=== PATIENT | female | born 1950 | race Caucasian/White ===

== ENCOUNTER → 2017-04-03 | Outpatient (CLI) | payer MEDICARE, OTHER ==
--- NOTE | 2017-04-03 16:42 | REP ---
MAXILLOFACIAL CT WITHOUT CONTRAST: HISTORY: Decreased smell sensation. COMPARISON: 03/11/2014 Bilateral Earle cells are present. Mild mucosal thickening is present in the right maxillary sinus. The remaining sinuses are clear. Mucosal thickening involves the right osteomeatal unit. The left osteomeatal unit is patent. The middle and inferior nasal turbinates are partially paradoxical. There is minimal deviation of the nasal septum to the right. The cribriform plate, medial bauer of the orbits and optic canals are intact. The carotid canals form a segment of the posterolateral bauer of the sphenoid sinus. IMPRESSION: Sinus mucosal thickening as described above. Signed by Marko Rich MD 04/03/2017 04:48 P
== END ==
LOC: M RAD 16:00
PROVIDERS: ATTEND Otolaryngology
DX: R43.8 Other disturbances of smell and taste (principal)

== ENCOUNTER → 2018-04-30 | Outpatient (REF) | payer MEDICARE, OTHER ==
[2018-04-30 13:50] LABS: BASO % 0.4 % (0.0-1.0); EOS # 0.1 10^3/uL (0.0-0.50); EOS % 0.9 % (0.0-3.0); HEMOGLOBIN 13.3 g/dl (12.0-15.5); IMMATURE GRANULOCYTE % 0.3 % (0-3.0); LYMPH # 3.2 10^3/uL (1.5-4.5); LYMPH % 46.7 % (24.0-44.0); MEAN CORPUSCULAR HEMOGLOBIN 27.4 pg (27.0-33.0); MEAN CORPUSCULAR HGB CONC 33.3 g/dl (32.0-36.5); MEAN CORPUSCULAR VOLUME 82.3 fl (80.0-96.0); MONO # 0.6 10^3/uL (0.0-0.8); MONO % 8.1 % (0.0-5.0); NEUTROPHILS % 43.6 % (36.0-66.0); PLATELET COUNT, AUTOMATED 344 10^3/uL (150-450); RED BLOOD COUNT 4.86 10^6/uL (4.00-5.40); RED CELL DISTRIBUTION WIDTH 13.4 % (11.5-14.5); WHITE BLOOD COUNT 6.9 10^3/uL (4.0-10.0)
[2018-04-30 14:19] LABS: ALBUMIN/GLOBULIN RATIO 1.21 (1.00-1.93); ALKALINE PHOSPHATASE 79 U/L (45-117); ALT/SGPT 25 U/L (12-78); ANION GAP 7 MEQ/L (8-16); AST/SGOT 18 U/L (7-37); BILIRUBIN,TOTAL 0.3 MG/DL (0.2-1.0); BLOOD UREA NITROGEN 15 MG/DL (7-18); CALCIUM LEVEL 9.5 MG/DL (8.8-10.2); CARBON DIOXIDE LEVEL 27 MEQ/L (21-32); CHLORIDE LEVEL 98 MEQ/L (98-107); CREATININE FOR GFR 0.67 MG/DL (0.55-1.30); GLOMERULAR FILTRATION RATE > 60.0 (>45); GLUCOSE, FASTING 95 MG/DL (70-100); POTASSIUM SERUM 4.5 MEQ/L (3.5-5.1); SODIUM LEVEL 132 MEQ/L (136-145); TOTAL PROTEIN 7.3 GM/DL (6.4-8.2)
[2018-04-30 18:26] LABS: ESTIMATED AVERAGE GLUCOSE 146 MG/DL (60-110); HEMOGLOBIN A1c 6.7 %
[2018-05-05 09:57] LABS: ALBUMIN 4.05 GM/DL (3.29-5.55); ALBUMIN % 55.5 % (55.8-66.1); ALPHA-1-GLOBULINS 0.29 GM/DL (0.17-0.41); ALPHA-2-GLOBULINS % 13.7 % (7.1-11.8); BETA-1-GLOBULINS 0.42 GM/DL (0.28-0.60); BETA-1-GLOBULINS % 5.8 % (4.7-7.2); BETA-2-GLOBULINS 0.45 GM/DL (0.19-0.55); BETA-2-GLOBULINS % 6.1 % (3.2-6.5); GAMMA GLOBULIN % 14.9 % (11.1-18.8); GAMMA GLOBULINS 1.09 GM/DL (0.65-1.58)
[2018-05-06 00:06] LABS: VITAMIN B6,PYRIDOXAL PHOSPHATE 10.2 ug/L (2.0-32.8); VITAMIN E(GAMMA TOCOPHEROL) 0.9 mg/L (0.5-4.9)
== END ==
LOC: M LABNEURO 11:59
DX: E11.9 Type 2 diabetes mellitus without complications (principal); E53.8 Deficiency of other specified B group vitamins; E51.9 Thiamine deficiency, unspecified
CPT/HCPCS: 84165

== ENCOUNTER → 2018-08-31 | Outpatient (CLI) | payer MEDICARE, OTHER ==
[~2018-08-31] MED LIST: ASPI1TAB PO; ATEN50TA2 PO; CHLO25TA PO; JANU100T PO; LEVO50TA5 PO; METF10004 PO; NORT25CA2 PO; PANT40TA3 PO; PLAV1TAB2 PO; POTA1TAB14 PO; PRAV20TA2 PO; RAMI1CAP26 PO; VITA100T92 PO; VITA200048 PO
[2018-08-31 12:08] LABS: HEMATOCRIT 39.9 % (36.0-47.0); MEAN CORPUSCULAR HEMOGLOBIN 26.6 pg (27.0-33.0); MEAN CORPUSCULAR HGB CONC 32.6 g/dl (32.0-36.5); MEAN CORPUSCULAR VOLUME 81.6 fl (80.0-96.0); PLATELET COUNT, AUTOMATED 289 10^3/uL (150-450); RED BLOOD COUNT 4.89 10^6/uL (4.00-5.40); WHITE BLOOD COUNT 7.6 10^3/uL (4.0-10.0)
[2018-08-31 12:20] LABS: INR 0.98; PROTHROMBIN TIME 13.1 SECONDS (12.1-14.4)
--- NOTE | 2018-08-31 12:26 | REP ---
Chest two views HISTORY: Preop Comparison: None The lungs are clear. The heart is normal in size. The pulmonary vasculature is normal in appearance. Degenerative change is present in the thoracic spine. IMPRESSION: No acute disease. Electronically Signed by Marko Rich MD 08/31/2018 12:17 P
[2018-08-31 12:28] LABS: ALBUMIN 3.7 GM/DL (3.2-5.2); ALT/SGPT 22 U/L (12-78); BILIRUBIN,TOTAL 0.2 MG/DL (0.2-1.0); BLOOD UREA NITROGEN 16 MG/DL (7-18); CALCIUM LEVEL 8.9 MG/DL (8.8-10.2); CARBON DIOXIDE LEVEL 27 MEQ/L (21-32); CHLORIDE LEVEL 98 MEQ/L (98-107); CREATININE FOR GFR 0.73 MG/DL (0.55-1.30); GLOMERULAR FILTRATION RATE > 60.0 (>45); GLUCOSE, FASTING 113 MG/DL (70-100); POTASSIUM SERUM 4.2 MEQ/L (3.5-5.1); SODIUM LEVEL 132 MEQ/L (136-145); TOTAL PROTEIN 7.2 GM/DL (6.4-8.2)
[2018-08-31 13:11] LABS: ERYTHROCYTE SEDIMENTATION RATE 14 mm/hr (0-30)
--- NOTE | 2018-08-31 20:12 | ECGEPIP ---
Stationary ECG Study [facility] Test Date: 2018-08-31 Pat Name: YU DAWKINS Department: Room: - Gender: F Train Starter: [facility] : 1950 Requested By: Alexander Alicea Order Number: [id number] Reading MD: Alejandro Salazar Measurements Intervals [place] Rate: 66 P: 11 [place]: 163 QRS: 9 QRSD: 96 T: 53 QT: 369 QTc: 388 Interpretive Statements Normal sinus rhythm Low voltage in limb leads Nonspecific repolarization abnormalities No comparison tracing available Electronically Signed On 08-31-2018 20:12:13 EDT by Alejandro Salazar
== END ==
LOC: M LAB 11:19
PROVIDERS: ATTEND Orthopaedic Surgery
DX: Z01.818 Encounter for other preprocedural examination (principal); M17.11 Unilateral primary osteoarthritis, right knee

== ENCOUNTER 2018-09-21 06:04 | Inpatient (IN) | payer MEDICARE, OTHER ==
--- NOTE | 2018-09-10 21:47 | HPE ---
DATE OF ADMISSION: 09/21/2018 HISTORY OF PRESENT ILLNESS: This is a pleasant female with continuing symptomatic right knee osteoarthritis. She has consented for a right total knee arthroplasty per Dr. Nixon Sharma. Medical optimization per Dr. Snell. X-rays are consistent with advanced osteoarthritis. ALLERGIES: CLINDAMYCIN HCL CAPSULES caused a reaction, skin rashes and hives. CURRENT MEDICATIONS: List includes: - aspirin adult low strength 81 mg chewable daily [id number] - atenolol 50 mg oral tablet one everyday by mouth - chlorthalidone 25 mg tablet one everyday by mouth - Glucophage 1000 mg oral tablet one everyday by mouth - Januvia 50 mg oral tablet 50 by mouth daily - Klor-Con 20 oral tablet extended release milliequivalent tablet controlled release one everyday by mouth - Levoxyl 50 mcg oral tablet one everyday by mouth - Plavix [address] Limon daily - pravastatin sodium 20 mg oral tablet one every morning by mouth - Protonix 40 mg oral tablet delayed release tablet enteric coated one everyday - ramipril 5 mg oral capsule one every bedtime - vitamin B1 100 mg oral tablet one everyday MEDICAL PROBLEM LIST: Includes: 1. Right knee osteoarthritis. 2. Benign essential hypertension. 3. Hypothyroidism. 4. Impaired fasting glucose. 5. Arthralgia. 6. Obesity. 7. Non-organic sleep apnea or obstructive. 8. Vitamin B1 deficiency. 9. Hypothyroidism. 10. Hyperlipidemia. 11. Shah's esophagitis. 12. Lower backache. SOCIAL HISTORY: She is a nonsmoker. Denies ethanol intake or illicit drugs. FAMILY HISTORY: Positive for myocardial infarction (RI), type 2 diabetes, hypertension, daughter has Von Willebrand's. REVIEW OF SYSTEMS: Denies chest pain, shortness of breath, dyspnea on exertion, fever, chills, malaise, upper respiratory or urinary tract symptoms. LABORATORY DATA: Acquired 08/31/2018 show glucose fasting 113, sodium level 132, anion gap 7, mean corpuscular hemoglobin 26.6. [facility] chest x-ray shows no acute disease, service date 08/31/[address] Rich. PHYSICAL EXAMINATION: VITAL SIGNS: Blood pressure 118/75, pulse 76, temperature 97.9. Height 63 inches. Weight 200 pounds. Body mass index (BMI) 35.4. Respirations 11. This is a pleasant well-developed, well-nourished, obese female in no acute distress. Alert and times three. Mood and affect are appropriate. She is ambulating slow, steady without overt antalgia. She does have favoring of the left lower extremity, right knee has a varus osteoarthritic line with positive medial joint line tenderness to palpation. Crepitance is noted through flexion/extension, range of motion is 0 past 100. Patellofemoral joint (PFJ) is congruent, static and dynamic. Negative popliteal fossa, mass or pain. There are no skin breaks in the bilateral lower extremities and compartments are both supple, soft, nontender to palpation, grossly intact to light touch. Negative calf tenderness and Vinny's sign. No palpable cords. No evidence of deep vein thrombosis (DVT) or compartment syndrome. IMPRESSION: 1. Symptomatic right knee osteoarthritis. 2. The patient consented for a right total knee arthroplasty per Dr. Sharma. 3. Medical optimization per Dr. Snell. 4. On-call to operating room (OR) 2 grams IV Kefzol in OR. 5. Sequential compression device (SCD) and thromboembolic-deterrent stockings (TEDS) in OR. MTDD
[2018-09-21] VITALS (7 sets, daily range): BP systolic 96–133; BP diastolic 52–74
[~2018-09-21] VITALS: Ht 157.5 cm; Wt 89.8 kg
[2018-09-21] MEDS ORDERED: ACETAMINOPHEN 500 MG TAB PO ONE (06:15)
[2018-09-21] MEDS ORDERED: LR 1,000 ML IV SCH ×3 (06:15→10:15)
[2018-09-21] MEDS ORDERED: MIDAZOLAM INJ 2 MG/2 ML VIAL (J2250) As Ordered ONE ×2 (06:52→07:20)
[2018-09-21] MEDS ORDERED: fentaNYL 100 MCG/2 ML INJECTION (J3010) As Ordered ONE ×2 (06:52→07:20)
[2018-09-21] MEDS ORDERED: BUPIVACAINE HCL 0.25% 10 ML VIAL As Ordered ONE (07:13)
[2018-09-21] MEDS ORDERED: EPINEPHrine INJ 1 MG/ML 1ML AMP As Ordered ONE (07:13)
[2018-09-21] MEDS ORDERED: TRANEXAMIC ACID 100 MG/ML 10ML VIAL As Ordered ONE (07:13)
[2018-09-21] MEDS ORDERED: BUPIVACAINE LIPOSOME/PF 1.3% 20ML VIAL (13.3MG/ML)(EXPAREL)(C9290 PER1MG) As Ordered ONE (07:13)
[2018-09-21] MEDS ORDERED: ceFAZolin 1GM INJ (J0690 PER 500MG) As Ordered ONE (07:13)
[2018-09-21] MEDS ORDERED: PROPOFOL 200 MG/20 ML VIAL As Ordered ONE ×2 (07:20→08:51)
[2018-09-21] MEDS ORDERED: BUPIVACAINE/DEXTROSE 0.75% 2 ML AMP As Ordered ONE (07:23)
[2018-09-21] MEDS ORDERED: fentaNYL 100 MCG/2 ML INJECTION (J3010) IV ONE (07:30)
[2018-09-21] MEDS ORDERED: MIDAZOLAM INJ 2 MG/2 ML VIAL (J2250) IV ONE (07:30)
[2018-09-21] MEDS ORDERED: PHENYLEPHRINE INJ 10MG/ML VIAL (J2370) As Ordered ONE (08:11)
[2018-09-21] MEDS ORDERED: PHENYLephrine HCL 500 MCG/5 ML (100MCG/ML) SYRINGE (J2370) As Ordered ONE (08:11)
[2018-09-21] MEDS ORDERED: ONDANSETRON 4MG/2ML VIAL (J2405) As Ordered ONE (08:51)
[2018-09-21] MEDS ORDERED: KETOROLAC 60 MG/2 ML VIAL (J1885) As Ordered ONE (08:51)
[2018-09-21] MEDS ORDERED: ONDANSETRON 4MG/2ML VIAL (J2405) IV PRN (10:00)
[2018-09-21] MEDS ORDERED: PERCOCET 5MG/325MG TAB PO PRN (10:00)
[2018-09-21] MEDS ORDERED: fentaNYL 100 MCG/2 ML INJECTION (J3010) IV PRN (10:00)
[2018-09-21] MEDS ORDERED: HYDROMORPHONE HCL 0.5 MG/ 0.5 ML SYRINGE (J1170 PER 1) IV PRN ×2 (10:00→10:15)
[2018-09-21] MEDS ORDERED: ACETAMINOPHEN TAB 650MG DOSE (2X325MG) PO PRN (10:15)
[2018-09-21] MEDS ORDERED: FLEET ENEMA PR PRN (10:15)
[2018-09-21] MEDS ORDERED: dexameTHASONE 10 MG/1 ML VIAL PRES.FREE (J1100) ONE (11:06)
[2018-09-21] MEDS ORDERED: LIDOCAINE 1% MDV 20ML VIAL ONE (11:06)
[2018-09-21] MEDS ORDERED: ROPIvacaine 0.5% 30 ML INJECTION (J2795 PER 1MG) ONE (11:06)
[2018-09-21] MEDS ORDERED: GLUCOSE 4 GM CHEW TABLET PO PRN (12:30)
[2018-09-21] MEDS ORDERED: GLUCAGON FOR INJ 1 MG VIAL (J1610) SC PRN (12:30)
[2018-09-21] MEDS ORDERED: DEXTROSE 50% 50 ML SYRINGE IV PRN (12:30)
[2018-09-21 13:04] LABS: HEMATOCRIT 38.3 % (36.0-47.0); HEMOGLOBIN 12.6 g/dl (12.0-15.5); MEAN CORPUSCULAR HEMOGLOBIN 27.4 pg (27.0-33.0); MEAN CORPUSCULAR HGB CONC 32.9 g/dl (32.0-36.5); MEAN CORPUSCULAR VOLUME 83.3 fl (80.0-96.0); PLATELET COUNT, AUTOMATED 276 10^3/uL (150-450)
[2018-09-21] MEDS: DOCUSATE SODIUM 100 MG CAP PO SCH (13:39)
[2018-09-21] MEDS: ASPIRIN 81 MG ENTERIC TAB PO SCH (13:39)
[2018-09-21] MEDS: THIAMINE 100 MG TAB PO SCH (13:39)
--- NOTE | 2018-09-21 13:40 | CR.PDOC ---
General Date of Consultation: Sep 21, 2018 Referring Provider: Alexander Sharma Primary Care Physician: Maureen Snell Attending Physician: AVIVA PASCAL MD Consultation Hospitalist Consult REASON FOR CONSULTATION/CHIEF COMPLAINT: post-op medical management HISTORY OF PRESENT ILLNESS: Ms. Escobar is a 68-year-old female with PMH as listed below. She underwent an elective total right knee arthroplasty earlier today 09/21/[address] Sharma severe osteoarthritis that has been interfering with her day-to-day activities. She denies any complications during the procedure or afterwards. She is examined at bedside on [address] [place] with her daughter present in room. She denies any complaints after the procedure and is noted to b e eating her lunch. ALLERGIES: Please see below. HOME MEDICATIONS: Please see below. PAST MEDICAL HISTORY: 1. Primary Hypertension 2. NIDDM 2 3. Hypothyroidism 4. Esophageal stricture s/p dilation 5. Osteoarthritis 6. Obesity 7. Obstructive sleep apnea 8. Vitamin B1 deficiency 9. History of stroke 2010 PAST SURGICAL HISTORY: 1. Right rotator cuff repair 2. Right hip replacement 3. Carpal tunnel release 4. Esophageal dilation 5. Tubal FAMILY HISTORY: Father had diabetes. Mother and father both passed of an HI. She denies any other luminary, cardiac, malignant illnesses in the family. SOCIAL HISTORY: Denies alcohol, tobacco, illicit substances. REVIEW OF SYSTEMS: Constitutional: Denies fever, chills, night sweats, weight loss Eyes: Denies eye pain, vision change ENT: Denies headaches, ear pain Skin: Denies any rashes or lesions Pulmonary: Denies dyspnea, cough, wheezing Cardiac: Denies chest pain, palpitations, edema, lightheadedness GI: Denies nausea, vomiting, abdominal pain, diarrhea, constipation, melena, hematochezia : Denies dysuria, hematuria, retention Endocrine: Denies heat or cold intolerance MSK: Denies muscle aches or body pains Neurologic: Denies weakness, numbness/tingling PHYSICAL EXAMINATION: VITAL SIGNS: Please see below. General exam: Alert and cooperative, A&O 3, NAD Eye exam: PERRLA, EOMI, anicteric sclera ENT: Atraumatic, normocephalic, mucus membranes moist, tongue midline, no pharyngeal edema Neck: Supple, no JVD, no carotid bruits Cardiac: RRR, normal S1 & S2, no murmurs Respiratory: CTAB, good air exchange, no wheezing, rhonchi, or rales Abdomen: Obese, present bowel sounds, soft, nontender, nondistended Extremity: 2+ radial and dorsalis pedis pulses, no edema, clubbing, cyanosis, or tenderness. Right knee is wrapped from recent surgery Skin: [place], warm, dry, no visible rash or lesions, no jaundice Neuro: Strength 5/5 x4, normal tone, sensation intact, normal speech, CN III-XII intact Psych: Normal mood and affect LABORATORY DATA: Please see below. ASSESSMENT/PLAN: This is 68-year-old female with notable history of stroke in 2010 on aspirin and Plavix, hypertension, NIDDM 2, who underwent an elective right knee repair earlier today. 1. S/P elective total right knee arthroplasty today 09/21/18, POD #1. Activity, diet, anticoagulation as per Ortho. 2. Primary Hypertension-continue her beta aguila with hold parameters. Will hold her thiazide and JOSIANE inhibitor given concern for renal function postop. Consider resuming if needed after her labs are checked. 3. History of stroke 2010-stable without any deficits. Patient is normally on a spirin and Plavix. Ortho has started her on Xarelto for postop anticoagulation. Her regimen was discussed with Ortho, who recommended resuming her aspirin while she is on Xarelto. Plan to resume Plavix once she has completed her 12 days of Xarelto. 3. NIDDM 2-home metformin and Januvia on hold. Continue insulin sliding scale and patient. Consistent carb diet 4. Hx of esophageal stricture- S/P dilation 5. Osteoarthritis-pain control as per Ortho. 6. Obesity-complicates care 7. Obstructive sleep apnea-patient advised to bring in her home BiPAP 8. Vitamin B1 deficiency-continue home supplement 9. Hypothyroidism-continue home Synthroid DVT ppx: on Xarelto & dasha/scd per Ortho. Vital Signs/I&O Vital Signs Date Time Temp Pulse Resp B/P (MAP) Pulse Ox O2 Delivery O2 Flow Rate FiO2 09/21/18 11:00 18 09/21/18 11:00 2.0 09/21/18 10:30 97.2 63 104/65 (78) 97 Laboratory Data Labs 24H Laboratory Tests 2 09/21/18 12:48: Nucleated Red Blood Cells % (auto) 0.0 CBC/BMP Laboratory Tests 09/21/18 06:21 09/21/18 12:48 Red Blood Count 4.60, Mean Corpuscular Volume 83.3, Mean Corpuscular Hemoglobin 27.4, Mean Corpuscular Hemoglobin Concent 32.9, Red Cell Distribution Width 13.0 Allergies Coded Allergies: clindamycin (Verified Allergy, Intermediate, rash, hives, 09/16/18) Home Medications Scheduled Aspirin (Aspirin 81) 81 Mg Tab, 81 MG PO DAILY, #30 (Reported) Atenolol (Atenolol) 50 Mg Tab, 50 MG PO DAILY, (Reported) Chlorthalidone (Chlorthalidone) 25 Mg Tab, 25 MG PO DAILY, (Reported) Clopidogrel Bisulfate (Plavix) 75 Mg Tab, 75 MG PO DAILY, (Reported) Ergocalciferol (Vitamin D) 2,000 Unit Cap, 2,000 UNIT PO DAILY, (Reported) Levothyroxine Sodium (Synthroid) 50 Mcg Tab, 50 MCG PO DAILY, (Reported) Metformin Hydrochloride (Metformin HCl) 1,000 Mg Tab, 1,000 MG PO DAILY, (Reported) Nortriptyline HCl (Nortriptyline HCl) 25 Mg Cap, 25 MG PO QHS, (Reported) Pantoprazole Sodium (Pantoprazole Sodium) 40 Mg Tab, 40 MG PO DAILY, (Reported) Potassium Chloride (Potassium Chloride ER) 20 Meq Tab, 20 MEQ PO DAILY, (Reported) Pravastatin Sodium (Pravastatin Sodium) 20 Mg Tab, 20 MG PO DAILY, (Reported) Ramipril (Ramipril) 10 Mg Cap, 5 MG PO DAILY, (Reported) Sitagliptin Phosphate (Januvia) 100 Mg Tab, 50 MG PO DAILY, (Reported) Thiamine Mononitrate (Vitamin B1) 100 Mg Tab, 100 MG PO DAILY, (Reported) GME ATTESTATION GME ATTESTATION My faculty preceptor for this patient encounter was physically present during the encounter and was fully available. All aspects of the patient interview, examination, medical decision making process, and medical care plan development were reviewed and approved by the faculty preceptor. The faculty preceptor is aware and concurs with the plan as stated in the body of this note and will attest to such by his/her cosignature. JANET PECK DO Sep 21, 2018 13:40
[2018-09-21 13:57] LABS: BLOOD UREA NITROGEN 15 MG/DL (7-18); CALCIUM LEVEL 8.6 MG/DL (8.8-10.2); CARBON DIOXIDE LEVEL 25 MEQ/L (21-32); CHLORIDE LEVEL 101 MEQ/L (98-107); GLOMERULAR FILTRATION RATE > 60.0 (>45); GLUCOSE, FASTING 153 MG/DL (70-100); POTASSIUM SERUM 4.4 MEQ/L (3.5-5.1); SODIUM LEVEL 134 MEQ/L (136-145)
--- NOTE | 2018-09-21 15:49 | REP ---
Right knee: Two views. History: Postop evaluation. Findings: The patient is status post right knee arthroplasty. Anterior skin ambika are seen. Prosthetic components are well aligned. There is interarticular and periarticular soft tissue gas. Electronically Signed by Gus Zeng MD 09/21/2018 04:21 P
[2018-09-21] MEDS: HumaLOG INSULIN (NovoLOG) PER UNIT SC SCH (17:54)
[2018-09-21] MEDS: HYDROMORPHONE HCL 0.5 MG/ 0.5 ML SYRINGE (J1170 PER 1) IV PRN ×2 (17:54→21:26)
[2018-09-21] MEDS ORDERED: NORTRIPTYLINE 25 MG CAP PO SCH (21:00)
[2018-09-21] MEDS ORDERED: HumaLOG INSULIN (NovoLOG) PER UNIT SC SCH (21:00)
[2018-09-22] MEDS: HYDROMORPHONE HCL 0.5 MG/ 0.5 ML SYRINGE (J1170 PER 1) IV PRN ×2 (00:44→04:07)
[2018-09-22 02:00] VITALS: BP 122/71
[2018-09-22] MEDS ORDERED: PERC5TAB12 PO (05:57)
[2018-09-22] MEDS ORDERED: XARE10TA PO (05:57)
[2018-09-22 06:00] VITALS: BP 137/78
[2018-09-22] MEDS ORDERED: PERCOCET 5MG/325MG TAB PO PRN (06:00)
[2018-09-22] MEDS ORDERED: LEVOTHYROXINE 50MCG TABLET (0.05MG) PO SCH (06:00)
[2018-09-22] MEDS: PERCOCET 5MG/325MG TAB PO PRN ×2 (06:11→10:54)
[2018-09-22 07:05] LABS: HEMATOCRIT 35.1 % (36.0-47.0); HEMOGLOBIN 11.7 g/dl (12.0-15.5); MEAN CORPUSCULAR HEMOGLOBIN 27.5 pg (27.0-33.0); MEAN CORPUSCULAR HGB CONC 33.3 g/dl (32.0-36.5); MEAN CORPUSCULAR VOLUME 82.6 fl (80.0-96.0); PLATELET COUNT, AUTOMATED 269 10^3/uL (150-450); RED BLOOD COUNT 4.25 10^6/uL (4.00-5.40); WHITE BLOOD COUNT 17.4 10^3/uL (4.0-10.0)
[2018-09-22 07:31] LABS: BLOOD UREA NITROGEN 13 MG/DL (7-18); CALCIUM LEVEL 8.3 MG/DL (8.8-10.2); CARBON DIOXIDE LEVEL 27 MEQ/L (21-32); CHLORIDE LEVEL 101 MEQ/L (98-107); CREATININE FOR GFR 0.76 MG/DL (0.55-1.30); GLOMERULAR FILTRATION RATE > 60.0 (>45); GLUCOSE, FASTING 125 MG/DL (70-100); POTASSIUM SERUM 3.9 MEQ/L (3.5-5.1); SODIUM LEVEL 136 MEQ/L (136-145)
[2018-09-22 08:21] VITALS: BP 137/78
[2018-09-22] MEDS: DOCUSATE SODIUM 100 MG CAP PO SCH (08:21)
[2018-09-22] MEDS: ASPIRIN 81 MG ENTERIC TAB PO SCH (08:21)
[2018-09-22] MEDS: THIAMINE 100 MG TAB PO SCH (08:21)
[2018-09-22] MEDS: HumaLOG INSULIN (NovoLOG) PER UNIT SC SCH ×2 (08:21→12:00)
[2018-09-22] MEDS ORDERED: ATENOLOL 50 MG TAB PO SCH (09:00)
[2018-09-22] MEDS ORDERED: PANTOPRAZOLE 40MG TAB (PROTONIX) PO SCH (09:00)
[2018-09-22] MEDS ORDERED: MIRALAX *UNIT DOSE* 17GM PACKET PO SCH (09:00)
[2018-09-22] MEDS ORDERED: PRAVASTATIN 20 MG TAB PO SCH (09:00)
[2018-09-22 10:00] VITALS: BP 121/78
--- NOTE | 2018-09-22 11:14 | IPNPDOC ---
Text Note Date of Service The patient was seen on 09/22/18. NOTE HOSPITALIST PROGRESS NOTE SUBJECTIVE: Patient examined sitting in chair. Besides difficulty sleeping due to pain at the surgical site, she has no new complaints today and is otherwise doing well. There is discussion of possibly sending her home per her primary team. No fevers chills nausea vomiting lightheadedness dizziness abdominal pain coughing wheezing or sob. Is tolerating diet without issue. PHYSICAL EXAMINATION: VITAL SIGNS: Please see below. General exam: Alert and cooperative, A&O 3, NAD Eye exam: PERRLA, EOMI, anicteric sclera ENT: Atraumatic, normocephalic, mucus membranes moist Cardiac: RRR, normal S1 & S2, no murmurs Respiratory: CTAB, good air exchange, no wheezing, rhonchi, or rales Abdomen: Obese, present bowel sounds, soft, nontender, nondistended Extremity: 2+ radial and dorsalis pedis pulses, no edema, clubbing, cyanosis, or tenderness. Right knee surgical site in dressing-clean, dry, intact. ROM intact. No swelling or signs of infection Skin: [place], warm, dry, no visible rash or lesions Neuro: no focal deficits LABORATORY DATA: Please see below. ASSESSMENT/PLAN: This is 68-year-old female with notable history of stroke in 2010 on aspirin and Plavix, hypertension, NIDDM 2, who underwent an elective right knee repair earlier today. 1. S/P elective total right knee arthroplasty today 09/21/18, POD #2. Activity, diet, pain, and anticoagulation as per Ortho. Continue with PT 2. Leukocytosis- patient afebrile and has no complaints or signs or symptoms suggesting infection. May be reactionary 2/2 recent surgery. Continue monitoring 3. Primary Fixletdppzdd-emqm-tkuhhljvxm. Continue on current regimen. May resume thiazide and JOSIANE inhibitor if needed. 4. History of stroke 2010-stable without any deficits. Patient is normally on aspirin and Plavix. Per Ortho, will start Xarelto today and want her to continue on ASA, and plan to resume Plavix once Xarelto 12-day course is completed. Pt has been made aware of plan, risks including bleeding vs clot, and all qs answered. 5. NIDDM 2-home metformin and Januvia on hold. Continue insulin sliding scale and patient. Consistent carb diet 6. Hx of esophageal stricture- S/P dilation. stable. Tolerating diet well 7. Osteoarthritis-pain control as per Ortho. 8. Obesity-complicates care 9. Obstructive sleep apnea-patient using BiPAP 10. Vitamin B1 deficiency-continue home supplement 11. Hypothyroidism-continue home Synthroid DVT ppx: Xarelto DISPO: Pt is doing well and stable. Work with PT. Plan as above. Patient ok for discharge from hospitalist stand. VS,Fishbone, I+O VS, Fishbone, I+O Laboratory Tests 09/21/18 12:48 Red Blood Count 4.60, Mean Corpuscular Volume 83.3, Mean Corpuscular Hemoglobin 27.4, Mean Corpuscular Hemoglobin Concent 32.9, Red Cell Distribution Width 13.0, Calcium Level 8.6 L 09/22/18 06:56 Red Blood Count 4.25, Mean Corpuscular Volume 82.6, Mean Corpuscular Hemoglobin 27.5, Mean Corpuscular Hemoglobin Concent 33.3, Red Cell Distribution Width 12.9, Calcium Level 8.3 L Vital Signs Date Time Temp Pulse Resp B/P (MAP) Pulse Ox O2 Delivery O2 Flow Rate FiO2 09/22/18 10:54 18 09/22/18 10:00 97.8 66 121/78 (92) 98 09/21/18 11:00 2.0 I&O- Last 24 Hours up to 6 AM 09/22/18 06:00 Intake Total 2800 ml Output Total 1400 ml Balance 1400 ml GME ATTESTATION GME ATTESTATION My faculty preceptor for this patient encounter was physically present during the encounter and was fully available. All aspects of the patient interview, examination, medical decision making process, and medical care plan development were reviewed and approved by the faculty preceptor. The faculty preceptor is aware and concurs with the plan as stated in the body of this note and will attest to such by his/her cosignature. JANET PECK DO Sep 22, 2018 11:14
--- NOTE | 2018-09-22 12:34 | RO ---
DATE OF PROCEDURE: 09/21/2018 PREPROCEDURE DIAGNOSIS: Right knee degenerative arthritis. POSTPROCEDURE DIAGNOSIS: Right knee degenerative arthritis. PROCEDURE: Right total knee arthroplasty using a size 4 cruciate retaining Attune femoral component with a size 4 tibial tray, 7 mm rotating platform and polyurethane insert and a 32 mm polyurethane button. All components were cemented. Prostheses were made by [employer]. It was an Attune knee. SURGEON: Dr. Nixon Sharma. FURNACE OPERATOR: None. ANESTHESIA: Spinal with right femoral nerve block. COMPLICATIONS: None. SPECIMENS: Joint surface. DESCRIPTION OF PROCEDURE: Antibiotics given intravenously preoperatively and a successful right femoral nerve block and then a spinal anesthetic was induced. A tourniquet was placed on the thigh but not inflated. Right lower extremity was carefully prepped and draped in the usual sterile fashion and then the leg was elevated and after an appropriate time-out, the tourniquet was inflated. A longitudinal incision was made for a medial parapatellar approach to the knee. Bovie cautery was used to coagulate the crossing vessels. A subperiosteal dissection along the proximal and medial and lateral tibial plateaus were performed. Then we everted the patella and flexed the knee. A drill hole was placed down the center of the femoral canal followed by the distal femoral cutting jig set at a 5 degree valgus cut and 9 mm resection level for a right knee. The intramedullary rukhsana went as far as the hip prosthesis above. Distal femoral cut performed. AP sizing jigs measured to a size 4. 3 degrees of external rotation was dialed in. A 4-in-1 block applied. Anterior and posterior chamfer cuts were performed. The template was made for the notchplasty where it was applied and then the notchplasty performed. Then we exposed the proximal tibia, used the extramedullary alignment jig to estimate being parallel to the mechanical access referencing off the medial tibial condyle at 4 mm resection level. The jig was set and the secondary check with extramedullary rukhsana confirmed they appeared to be parallel. Then the proximal tibia osteotomy performed. The laminar glass tube bender was then placed medially and we performed a completion lateral meniscectomy debridement with posterolateral osteophytes. Then placed the laminar glass tube bender laterally and performed a completion medial meniscectomy and debridement of posterior medial osteophytes. Spacer blocks hit best at 7 mm thickness with good symmetry between flexion extension gaps with good stability of varus/valgus stress testing. We then exposed the proximal tibia sized for a #4 tibial tray, which is then reamed and broached and then the trial placed followed by the trial femoral component which fit vary nicely. Brought the knee into extension, everted the patella, performed a patellar osteotomy sized for a 32 button. Lug holes were drilled, trial placed and the patellofemoral tracking was anatomic. We drilled the lug holes for the femur, removed all the trial components, placed Exparel in the subperiosteal tissues around the distal femur and the proximal tibia. Then we copiously pulsatile lavaged, irrigated out the knee joint. Then I mixed the cement on the back table and then continued to copiously irrigate the knee, dried the surfaced thoroughly. Cemented the tibial tray, removed the excess cement and placed the polyethylene. Cemented the femoral component, removed excess cement and brought the knee into extension. Then cemented the patellar button, held it with a clamp with the knee in extension until the cement hardened. We copiously pulsatile lavaged and irrigated out the knee joint while we were waiting for that to happen. We made sure there was no excess cement anywhere. Then placed tranexamic acid into the knee joint. Then began closing the arthrotomy with a combination of interrupted #1 PDS sutures then with double-arm Stratafix. The tourniquet was then released. We irrigated and closed the deep subdermal tissues with interrupted #2-0 PDS sutures. Skin was closed with ambika covered by an Optifoam, dry sterile bulky dressing. She was then transferred to the recovery room in stable condition. There were no intraoperative complications. Specimens were the joint surface.
[2018-09-22] MEDS ORDERED: RIVAROXABAN 10 MG TAB (XARELTO) PO SCH (18:00)
--- NOTE | 2018-09-24 13:38 | DSES ---
DATE OF ADMISSION: 09/21/2018 DATE OF DISCHARGE: 09/22/2018 ATTENDING PHYSICIAN: Dr. Nixon Sharma ADMISSION DIAGNOSIS: Osteoarthritis right knee. OPERATION PERFORMED: Right knee total arthroplasty. DISCHARGE DIAGNOSIS: Osteoarthritis right knee status post right total knee arthroplasty. OTHER DIAGNOSES: Hypertension, hypothyroidism, impaired fasting glucose, obesity, sleep apnea, vitamin B1 deficiency, hyperlipidemia, Shah's esophagitis, low back pain. HISTORY: This is a pleasant 68-year-old female patient who had continuing symptomatic right knee osteoarthritis and was consented for right total knee arthroplasty by Dr. Sharma HOSPITAL COURSE: The patient was admitted to the hospital on the day of surgery. Surgery went well without complications. She did well in the postoperative period and was weightbearing as tolerated with physical therapy per their protocol. Pain was controlled on the day of discharge. She will resume her preoperative diet and medications, as well as oral pain medications for pain control. She will follow deep vein thrombosis (DVT) prophylaxis per protocol. DISCHARGE DIAGNOSIS To include but not limited to wound monitoring and activity limitations were discussed with the patient. She will followup in our office in 10-14 days. Please see medical record for further details.
== END 2018-09-22 13:40 | disposition home health service (06) | DRG 470 ==
LOC: M OR 06:04 → M MS5PR 10:45
PROVIDERS: ADMIT Orthopaedic Surgery; ATTEND Orthopaedic Surgery
PROC: 0SRC0J9 Replacement of Right Knee Joint with Synthetic Substitute, Cemented, Open Approach (ICD-10-PCS; principal; 2018-09-21 07:30)
DX: M17.11 Unilateral primary osteoarthritis, right knee (principal); E51.9 Thiamine deficiency, unspecified; I10 Essential (primary) hypertension; E03.9 Hypothyroidism, unspecified; R73.01 Impaired fasting glucose; E66.9 Obesity, unspecified; G47.33 Obstructive sleep apnea (adult) (pediatric); E78.5 Hyperlipidemia, unspecified; K22.70 Barrett's esophagus without dysplasia; M54.5 Low back pain; Z79.82 Long term (current) use of aspirin; Z79.02 Long term (current) use of antithrombotics/antiplatelets; Z79.84 Long term (current) use of oral hypoglycemic drugs; Z79.899 Other long term (current) drug therapy; Z96.641 Presence of right artificial hip joint; Z86.73 Personal history of transient ischemic attack (TIA), and cerebral infarction without residual deficits; Z68.36 Body mass index [BMI] 36.0-36.9, adult

== ENCOUNTER → 2019-07-15 | Outpatient (REF) | payer MEDICARE, OTHER ==
[~2019-07-15] MED LIST changes: -ASPI1TAB PO; +ASPI81TA26 PO; +PERC5TAB12 PO; +VITA100T89 PO; -VITA100T92 PO; +XARE10TA PO
[2019-07-15 16:07] LABS: BASO % 0.6 % (0.0-1.0); EOS # 0.1 10^3/uL (0.0-0.5); EOS % 1.2 % (0.0-3.0); HEMATOCRIT 41.4 % (36.0-47.0); HEMOGLOBIN 13.2 g/dl (12.0-15.5); LYMPH # 2.6 10^3/uL (1.5-5.0); LYMPH % 39.3 % (24.0-44.0); MEAN CORPUSCULAR HEMOGLOBIN 27.2 pg (27.0-33.0); MEAN CORPUSCULAR HGB CONC 31.9 g/dl (32.0-36.5); MEAN CORPUSCULAR VOLUME 85.2 fl (80.0-96.0); MONO # 0.5 10^3/uL (0.0-0.8); MONO % 7.7 % (0.0-5.0); NEUTROPHILS # 3.4 10^3/uL (1.5-8.5); NEUTROPHILS % 50.9 % (36.0-66.0); PLATELET COUNT, AUTOMATED 305 10^3/uL (150-450); RED BLOOD COUNT 4.86 10^6/uL (4.00-5.40); WHITE BLOOD COUNT 6.7 10^3/uL (4.0-10.0)
[2019-07-15 16:30] LABS: ERYTHROCYTE SEDIMENTATION RATE 11 mm/hr (0-30)
== END ==
LOC: M LABDRWAD 15:19 → M LABDRAW1 15:19
PROVIDERS: ATTEND Orthopaedic Surgery
DX: Z96.651 Presence of right artificial knee joint (principal)

== ENCOUNTER → 2020-09-22 | Outpatient (CLI) | payer MEDICARE, OTHER ==
[~2020-09-22] MED LIST changes: +PANT40TA29 PO; -PANT40TA3 PO
--- NOTE | 2020-09-22 11:02 | REPVR ---
PROCEDURE INFORMATION: Exam: CT Maxillofacial Without Contrast, Sinus Exam date and time: 09/22/2020 10:15 AM Age: 70 years old Clinical indication: Other: Distubances of smell and taste TECHNIQUE: Imaging protocol: CT Maxillofacial without contrast. Focus on the sinuses. Radiation optimization: All CT scans at this facility use at least one of these dose optimization techniques: automated exposure control; mA and/or kV adjustment per patient size (includes targeted exams where dose is matched to clinical indication); or iterative reconstruction. COMPARISON: CT Maxilofacial w/out contrast 04/03/2017 4:24 PM FINDINGS: Frontal sinuses: Normal. No air-fluid levels. Ethmoid air cells: Normal. No air-fluid levels. Sphenoid sinuses: Normal. No air-fluid levels. Maxillary sinuses: There is mild right maxillary sinus mucosal thickening. The maxillary sinus infundibula are patent. Nasal cavity/Septum: Unremarkable. Orbital cavity: Orbits are normal. Globes are unremarkable. Bones/joints: Degenerative changes involve the temporomandibular joints. Soft tissues: Unremarkable. IMPRESSION: Mild right maxillary sinus mucosal thickening. Electronically signed by: Kenisha Licea On 09/22/2020 11:02:20 AM
== END ==
LOC: M RAD 09:49
PROVIDERS: ATTEND Otolaryngology
DX: R43.8 Other disturbances of smell and taste (principal)

== ENCOUNTER → 2021-03-19 | Outpatient (REF) | payer MEDICARE, OTHER ==
[~2021-03-19] MED LIST changes: +CLOP75TA2 PO; +MEMA10TA19 PO; +OPTI0.5D5 OU; +RAMI1CAP24 PO; +SITA50TAB PO
[2021-03-19 11:37] LABS: CRYSTALS, BODY FLUID NONE SEEN (NONE SEEN); SOURCE, BODY FLUID LT HIP; SOURCE, BODY FLUID CRYSTALS LEFT HIP; SYNOVIAL FLUID COLOR RED (COLORLESS)
[2021-03-19 12:10] LABS: SOURCE, BODY FLUID GLUCOSE HIP LEFT
[2021-03-20 11:03] LABS: BODY FLUID RHEUMATOID SCREEN NEGATIVE (NEGATIVE)
[2021-03-20 11:05] LABS: MUCIN CLOT TEST 3+ (4+)
--- NOTE | 2021-03-20 20:08 | RO ---
OPERATIVE NOTE DATE OF OPERATION: 03/20/2021 PREOPERATIVE DIAGNOSIS: Left hip wound hematoma. POSTOPERATIVE DIAGNOSIS: Left hip wound hematoma. PROCEDURE: Left hip wound hematoma irrigation, debridement, and drainage. SURGEON: Alexander Sharma M.D. ANESTHESIA: General endotracheal tube anesthesia. COMPLICATIONS: None. ESTIMATED BLOOD LOSS: Less than 100 mL. SPECIMENS: Hematoma fluid, aerobic and anaerobic cultures, as well as soft tissue of the left hip wound for culture. FINDINGS: She had a relatively contained superficial hematoma collection that did not seem to communicate with the joint. DESCRIPTION OF PROCEDURE: She was on Vancomycin preoperatively. She was taken to the operating room after appropriate marking of the left hip was performed and after I interviewed her in the pre-operative holding area. In the operating room, general endotracheal tube anesthetic was established. She was placed in a herbert bag in a lateral decubitus position with the left hip upper most. Axillary roll was utilized, down-leg well-padded especially in the peroneal nerve. The left hip area was then very carefully prepped and draped in the usual sterile fashion. After an appropriate time out, the previous incision was opened. As I got through Tom's fascia, purple fluid was irrigated from the wound. This was cultured aerobically and anaerobically and some of the local soft tissue was removed with a rongeur and sent in a specimen cup for culture and gram stain as well. Once the wound had been irrigated, I carefully and gently probed the area of the hematoma, and it clearly was below Tom's fascia, but superficial to the tensor fascia. So, in other words, this was more or less a superficial fluid collection. It did not seem to communicate down into the hip joint itself. Given the relatively benign laboratory findings and the fact that the patient was not irritable at all or had pain in the groin, I felt it safe to assume that this was a localized superficial collection. Thus, I proceeded to pulsatile lavage irrigate out this area. I made sure there was meticulous hemostasis with the Bovie cautery. I did use a combination of Betadine, sterile saline, and peroxide into the wound to help further sterilize this hematoma cavity. Then, as I was doing this, I asked for the beads to be made which contained a gram of Vancomycin and tobramycin. Once they had been formulated and the wound copiously irrigated, they were placed in the depths of the wound along with some of the powdered tobramycin. Then, I bathed this area with tranexamic acid. A gram of tranexamic acid was also given intravenously during the surgery. A drain was placed exiting distally and posteriorly. This was a 19 JVAC and secured with a 0-silk suture. Then, I very carefully closed Tom's fascia to help minimize the space with interrupted 2-0 PDS suture. Subdermal tissues were closed with interrupted 2-0 PDS suture. The skin was closed with ambika covered by an Optifoam dressing. She was then turned supine and then awakened from general endotracheal anesthesia, having tolerated the procedure well, and was then transferred to the recovery room in stable condition. There were no intraoperative complications. [facility]
== END ==
LOC: M LAB REF 11:11
PROVIDERS: ATTEND Orthopaedic Surgery
DX: Z96.642 Presence of left artificial hip joint (principal)

== ENCOUNTER → 2022-06-20 | Outpatient (CLI) | payer MEDICARE, OTHER ==
[~2022-06-20] MED LIST changes: +CLOP75TA99 PO; -PLAV1TAB2 PO; +VITA100093 PO
== END ==
LOC: M LABSMTC 10:28
PROVIDERS: ATTEND Anesthesiology
DX: Z01.818 Encounter for other preprocedural examination (principal); Z20.822 Contact with and (suspected) exposure to COVID-19

== ENCOUNTER 2022-06-25 08:33 | Day surgery (SDC) | payer MEDICARE, OTHER ==
[~2022-06-25] VITALS: Ht 157.5 cm; Wt 91.6 kg
[~2022-06-25 08:33] MED LIST changes: +BSS IRR 500ML/OMIDRIA 4ML IRR BAG (OR ONLY) As Ordered ONE; +CEFUROXIME 1MG/0.1ML INTRACAMERAL INJ As Ordered ONE; +CYCLOPENTOLATE 1% OPHTH SOLN 2ML BTL OS SCH; +LIDOCAINE 1% 1ML PF SYRINGE (OR EYE CASES) As Ordered ONE; +OFLOXACIN 0.3 % (OCUFLOX) OPTH SOL 5ML OS SCH; +PHENYLEPHRINE 2.5% OPHTH SOL 2ML OS SCH; +PROPARACAINE 0.5% OPHTH SOL 15ML OS ONE; +TROPICAMIDE 1% OPHTH SOLN 15ML OS SCH
[2022-06-25 10:40] VITALS: BP 148/77
== END 2022-06-25 11:29 | disposition home or self-care (01) ==
LOC: M SDC 08:33
PROVIDERS: ATTEND Ophthalmology
DX: H25.12 Age-related nuclear cataract, left eye (principal); I10 Essential (primary) hypertension; E11.9 Type 2 diabetes mellitus without complications; E78.5 Hyperlipidemia, unspecified; E03.9 Hypothyroidism, unspecified; M19.90 Unspecified osteoarthritis, unspecified site; Z86.73 Personal history of transient ischemic attack (TIA), and cerebral infarction without residual deficits; G47.30 Sleep apnea, unspecified; Z88.1 Allergy status to other antibiotic agents; Z79.899 Other long term (current) drug therapy; Z79.02 Long term (current) use of antithrombotics/antiplatelets; Z79.890 Hormone replacement therapy; Z79.84 Long term (current) use of oral hypoglycemic drugs
CPT/HCPCS: 66984; J0697; J1097; V2632

== ENCOUNTER → 2022-07-18 | Outpatient (CLI) | payer MEDICARE, OTHER ==
[~2022-07-18] MED LIST changes: -BSS IRR 500ML/OMIDRIA 4ML IRR BAG (OR ONLY) As Ordered ONE; -CEFUROXIME 1MG/0.1ML INTRACAMERAL INJ As Ordered ONE; -CYCLOPENTOLATE 1% OPHTH SOLN 2ML BTL OS SCH; -LIDOCAINE 1% 1ML PF SYRINGE (OR EYE CASES) As Ordered ONE; -OFLOXACIN 0.3 % (OCUFLOX) OPTH SOL 5ML OS SCH; -PHENYLEPHRINE 2.5% OPHTH SOL 2ML OS SCH; -PROPARACAINE 0.5% OPHTH SOL 15ML OS ONE; -TROPICAMIDE 1% OPHTH SOLN 15ML OS SCH
== END ==
LOC: M LABSMTC 09:50
PROVIDERS: ATTEND Anesthesiology
DX: Z01.818 Encounter for other preprocedural examination (principal)

== ENCOUNTER 2022-07-23 07:07 | Day surgery (SDC) | payer MEDICARE, OTHER ==
[~2022-07-23] VITALS: Ht 157.5 cm; Wt 93.0 kg
[~2022-07-23 07:07] MED LIST changes: +BSS IRR 500ML/OMIDRIA 4ML IRR BAG (OR ONLY) As Ordered ONE; +CEFUROXIME 1MG/0.1ML INTRACAMERAL INJ As Ordered ONE; +CYCLOPENTOLATE 1% OPHTH SOLN 2ML BTL OD SCH; +LIDOCAINE 1% SDV 5ML VIAL As Ordered ONE; +OFLOXACIN 0.3 % (OCUFLOX) OPTH SOL 5ML OD SCH; +PHENYLEPHRINE 2.5% OPHTH SOL 2ML OD SCH; +PROPARACAINE 0.5% OPHTH SOL 15ML OD ONE; +TROPICAMIDE 1% OPHTH SOLN 15ML OD SCH
[2022-07-23] MEDS ORDERED: MIDAZOLAM INJ 2MG/2ML VIAL As Ordered ONE (08:25)
[2022-07-23 08:42] VITALS: BP 108/70
== END 2022-07-23 09:00 | disposition home or self-care (01) ==
LOC: M SDC 07:07
PROVIDERS: ATTEND Ophthalmology
DX: H25.11 Age-related nuclear cataract, right eye (principal); I10 Essential (primary) hypertension; E78.5 Hyperlipidemia, unspecified; E11.9 Type 2 diabetes mellitus without complications; E03.9 Hypothyroidism, unspecified; G47.30 Sleep apnea, unspecified; Z86.73 Personal history of transient ischemic attack (TIA), and cerebral infarction without residual deficits; Z88.1 Allergy status to other antibiotic agents; Z79.899 Other long term (current) drug therapy; Z79.84 Long term (current) use of oral hypoglycemic drugs
CPT/HCPCS: 66984; J0697; J1097; J2250; V2632

== ENCOUNTER 2022-12-05 07:47 | Day surgery (SDC) | payer MEDICARE, OTHER ==
[~2022-12-05] VITALS: Ht 157.5 cm; Wt 93.7 kg
[~2022-12-05 07:47] MED LIST changes: -BSS IRR 500ML/OMIDRIA 4ML IRR BAG (OR ONLY) As Ordered ONE; -CEFUROXIME 1MG/0.1ML INTRACAMERAL INJ As Ordered ONE; -CYCLOPENTOLATE 1% OPHTH SOLN 2ML BTL OD SCH; -LIDOCAINE 1% SDV 5ML VIAL As Ordered ONE; -OFLOXACIN 0.3 % (OCUFLOX) OPTH SOL 5ML OD SCH; -PHENYLEPHRINE 2.5% OPHTH SOL 2ML OD SCH; +POTA-298 PO; -POTA1TAB14 PO; -PROPARACAINE 0.5% OPHTH SOL 15ML OD ONE; -TROPICAMIDE 1% OPHTH SOLN 15ML OD SCH
[2022-12-05] MEDS: NS 1,000 ML IV ONE (08:12)
[2022-12-05] MEDS ORDERED: LIDOCAINE 2% 100MG/5ML SDV (FOR ANES.) As Ordered ONE (08:52)
[2022-12-05] MEDS ORDERED: propofoL 200 MG/20 ML VIAL As Ordered ONE ×2 (08:52→09:40)
[2022-12-05 10:02] VITALS: TEMP 97.6
[2022-12-05 10:22] VITALS: BP 116/56; O2SAT 99
== END 2022-12-05 10:31 | disposition home or self-care (01) ==
LOC: M OPP 07:47
PROVIDERS: ATTEND Internal Medicine Gastroenterology
DX: Z12.11 Encounter for screening for malignant neoplasm of colon (principal); Z86.010 Personal history of colon polyps; K63.5 Polyp of colon; K57.30 Diverticulosis of large intestine without perforation or abscess without bleeding; K64.8 Other hemorrhoids; I10 Essential (primary) hypertension; E78.5 Hyperlipidemia, unspecified; E11.9 Type 2 diabetes mellitus without complications; E03.9 Hypothyroidism, unspecified; M19.90 Unspecified osteoarthritis, unspecified site; G47.30 Sleep apnea, unspecified; Z86.73 Personal history of transient ischemic attack (TIA), and cerebral infarction without residual deficits; Z96.643 Presence of artificial hip joint, bilateral; Z96.651 Presence of right artificial knee joint; Z88.1 Allergy status to other antibiotic agents; Z79.84 Long term (current) use of oral hypoglycemic drugs; Z79.890 Hormone replacement therapy; Z79.899 Other long term (current) drug therapy; Z83.3 Family history of diabetes mellitus